=== PATIENT | male | born 1995 | race Caucasian/White ===

== ENCOUNTER 2016-07-30 22:53 | Emergency (ER) | payer SELFPAY ==
[~2016-07-30 22:53] MED LIST: CLEOCIN T60 M1 TP
[2016-07-30] MEDS ORDERED: NO HOME MEDICATION XX (23:03)
== END 2016-07-31 00:01 ==
LOC: EDMED 22:53
DX: L70.9 Acne, unspecified (principal); B35.3 Tinea pedis